=== PATIENT | male | born 1950 | race Caucasian/White ===

== ENCOUNTER 2023-06-02 18:14 | Inpatient (IN) | payer OTHER ==
[2023-06-02] MEDS ORDERED: dilTIAZem HCL 125 MG/25 ML - 25 ML VIAL ONE (19:45)
[2023-06-02 19:55] LABS: BASO % 0.4 % (0-2.0); EOS % 0.2 % (0-4.5); HEMATOCRIT 37.4 % (35.4-49); HEMOGLOBIN 12.3 GM/dL (11.7-16.9); LYMPH % 39.2 % (8-40); MCH 27.6 pg (25.7-33.7); MCHC 32.8 g/dl (32.0-35.9); MEAN CELL VOLUME 84.1 fl (80-96); MEAN PLT VOLUME 7.3 fl (7.5-11.1); MONO % 10.6 % (3.8-10.2); NEUT % 49.6 % (42.8-82.8); PLATELET COUNT 232 10^3/uL (134-434); RBC 4.45 M/mm3 (4.00-5.60); WHITE BLOOD COUNT 5.1 K/mm3 (4.0-10.0)
[2023-06-02] MEDS: dilTIAZem HCL 50 MG/10 ML - 10 ML VIAL IVPUSH ONE ×2 (19:58→22:06)
[2023-06-02 20:16] LABS: POTASSIUM 4.3 mmol/L (3.5-5.1)
[2023-06-02 20:18] LABS: ALBUMIN 2.9 g/dl (3.4-5.0); BLOOD UREA NITROGEN 43.1 mg/dL (7-18); CALCIUM 8.4 mg/dL (8.5-10.1); MAGNESIUM 2.2 mg/dL (1.8-2.4)
[2023-06-02 20:21] LABS: CREATININE 1.7 mg/dL (0.55-1.3)
[2023-06-02 20:23] LABS: TOT PROT 7.6 g/dl (6.4-8.2)
[2023-06-02 20:25] LABS: INR 1.84 (0.83-1.09); PROTHROMBIN TIME (PATIENT) 21.2 SEC (9.7-13.0)
[2023-06-02 20:27] LABS: N-TERMINAL BNP 12542.3 pg/ml (5-125)
[2023-06-02 20:28] LABS: ACTIVATED PTT 34.1 SECONDS (25.2-36.5)
[2023-06-02] MEDS ORDERED: dilTIAZem HCL 60 MG TABLET ONE (20:41)
[2023-06-02] MEDS ORDERED: FUROSEMIDE 40 MG/4 ML INJECTABLE VIAL ONE (21:09)
[2023-06-02] MEDS: dilTIAZem HCL 60 MG TABLET PO ONE (21:15)
[2023-06-02] MEDS: FUROSEMIDE 40 MG/4 ML INJECTABLE VIAL IVPUSH ONE (21:15)
[2023-06-02] MEDS ORDERED: dilTIAZem HCL 50 MG/10 ML - 10 ML VIAL ONE (21:58)
[2023-06-03] MEDS ORDERED: DOCUSATE SODIUM 100 MG CAPSULE (FP) PO PRN (00:31)
[2023-06-03] MEDS ORDERED: ACETAMINOPHEN 325 MG TABLET (FP) PO PRN (00:31)
[2023-06-03] MEDS: TICAGRELOR 60 MG TABLET PO ONE (03:18)
[2023-06-03] MEDS: PANTOPRAZOLE 40 MG TABLET PO SCH (07:41)
[2023-06-03] MEDS: ASPIRIN COATED 81 MG TABLET.EC PO SCH (09:07)
[2023-06-03] MEDS ORDERED: METOPROLOL TARTRATE 5 MG/5 ML VIAL ONE (09:30)
[2023-06-03] MEDS: METOPROLOL TARTRATE 5 MG/5 ML VIAL IVPUSH PRN (09:33)
[2023-06-03 10:33] LABS: BASO % 0.5 % (0-2.0); EOS % 0.5 % (0-4.5); HEMATOCRIT 36.2 % (35.4-49); HEMOGLOBIN 11.5 GM/dL (11.7-16.9); LYMPH % 33.2 % (8-40); MCHC 31.8 g/dl (32.0-35.9); MEAN CELL VOLUME 84.9 fl (80-96); MEAN PLT VOLUME 7.3 fl (7.5-11.1); MONO % 10.2 % (3.8-10.2); NEUT % 55.6 % (42.8-82.8); PLATELET COUNT 206 10^3/uL (134-434); RBC 4.27 M/mm3 (4.00-5.60); WHITE BLOOD COUNT 4.8 K/mm3 (4.0-10.0)
[2023-06-03] MEDS: METOPROLOL TARTRATE 25 MG TABLET (FP) PO SCH (10:42)
[2023-06-03] MEDS: FUROSEMIDE 40 MG/4 ML INJECTABLE VIAL IVPUSH SCH (10:45)
[2023-06-03 10:47] LABS: INR 1.85 (0.83-1.09); PROTHROMBIN TIME (PATIENT) 21.3 SEC (9.7-13.0)
[2023-06-03 10:50] LABS: ACTIVATED PTT 35.5 SECONDS (25.2-36.5)
[2023-06-03 10:51] LABS: POTASSIUM 3.9 mmol/L (3.5-5.1)
[2023-06-03 10:54] LABS: ALBUMIN 2.6 g/dl (3.4-5.0); BLOOD UREA NITROGEN 45.2 mg/dL (7-18); CALCIUM 8.3 mg/dL (8.5-10.1)
[2023-06-03 10:55] LABS: MAGNESIUM 2.2 mg/dL (1.8-2.4)
[2023-06-03 10:57] LABS: CREATININE 1.7 mg/dL (0.55-1.3); PHOSPHOROUS 3.8 mg/dL (2.5-4.9)
[2023-06-03 10:59] LABS: BILIRUBIN,TOTAL 0.9 mg/dL (0.2-1)
[2023-06-03] MEDS ORDERED: TICAGRELOR 60 MG TABLET PO SCH (21:00)
[2023-06-03] MEDS: TICAGRELOR 90 MG TABLET PO SCH (21:41)
[2023-06-03] MEDS: SPIRONOLACTONE 25 MG TABLET PO SCH (21:41)
[2023-06-03] MEDS: APIXABAN 5 MG TABLET PO SCH (21:41)
[2023-06-03] MEDS: metoPROLOL SUCCINATE 25 MG TAB.SR.24H (FP) PO SCH (21:42)
[2023-06-04 07:33] LABS: POTASSIUM 5.6 mmol/L (3.5-5.1)
[2023-06-04 07:49] LABS: CALCIUM 8.5 mg/dL (8.5-10.1)
[2023-06-04 07:50] LABS: ALBUMIN 2.8 g/dl (3.4-5.0)
[2023-06-04 07:53] LABS: CREATININE 2.1 mg/dL (0.55-1.3)
[2023-06-04 07:54] LABS: BILIRUBIN,TOTAL 1.4 mg/dL (0.2-1); TOT PROT 7.7 g/dl (6.4-8.2)
[2023-06-04 08:18] LABS: BASO % 0.4 % (0-2.0); EOS % 0.2 % (0-4.5); HEMATOCRIT 39.6 % (35.4-49); HEMOGLOBIN 12.8 GM/dL (11.7-16.9); LYMPH % 31.5 % (8-40); MCH 27.6 pg (25.7-33.7); MCHC 32.2 g/dl (32.0-35.9); MEAN CELL VOLUME 85.6 fl (80-96); MEAN PLT VOLUME 7.7 fl (7.5-11.1); MONO % 9.4 % (3.8-10.2); NEUT % 58.5 % (42.8-82.8); PLATELET COUNT 233 10^3/uL (134-434); RBC 4.63 M/mm3 (4.00-5.60); RDW 18.2 % (11.9-15.9); WHITE BLOOD COUNT 7.8 K/mm3 (4.0-10.0)
[2023-06-04] MEDS: metoPROLOL SUCCINATE 25 MG TAB.SR.24H (FP) PO ONE (11:54)
[2023-06-04] MEDS: CLOPIDOGREL BISULFATE 300 MG TABLET PO ONE (12:14)
[2023-06-04 18:01] VITALS: BMI 29.0
[2023-06-04] MEDS: metoPROLOL SUCCINATE 25 MG TAB.SR.24H (FP) PO SCH (22:21)
[2023-06-05 08:17] LABS: POTASSIUM 4.5 mmol/L (3.5-5.1)
[2023-06-05 08:26] LABS: ALBUMIN 2.8 g/dl (3.4-5.0); BLOOD UREA NITROGEN 56.1 mg/dL (7-18); CALCIUM 8.3 mg/dL (8.5-10.1)
[2023-06-05 08:28] LABS: CREATININE 2.5 mg/dL (0.55-1.3)
[2023-06-05 08:29] LABS: BILIRUBIN,TOTAL 1.2 mg/dL (0.2-1)
[2023-06-05 08:31] LABS: BASO % 0.3 % (0-2.0); EOS % 0.2 % (0-4.5); HEMATOCRIT 38.3 % (35.4-49); HEMOGLOBIN 12.4 GM/dL (11.7-16.9); LYMPH % 44.2 % (8-40); MCH 27.4 pg (25.7-33.7); MCHC 32.4 g/dl (32.0-35.9); MEAN CELL VOLUME 84.7 fl (80-96); MEAN PLT VOLUME 7.6 fl (7.5-11.1); MONO % 8.8 % (3.8-10.2); NEUT % 46.5 % (42.8-82.8); PLATELET COUNT 228 10^3/uL (134-434); RBC 4.52 M/mm3 (4.00-5.60); RDW 17.5 % (11.9-15.9); WHITE BLOOD COUNT 7.6 K/mm3 (4.0-10.0)
[2023-06-05] MEDS: CLOPIDOGREL BISULFATE 75 MG TABLET (FP) PO SCH (09:45)
[2023-06-05] MEDS: FUROSEMIDE 40 MG/4 ML INJECTABLE VIAL IVPUSH ONE (13:18)
[2023-06-06] MEDS: FUROSEMIDE 40 MG/4 ML INJECTABLE VIAL IVPUSH ONE (13:35)
[2023-06-07 08:40] LABS: BASO % 0.4 % (0-2.0); HEMATOCRIT 35.6 % (35.4-49); HEMOGLOBIN 11.9 GM/dL (11.7-16.9); LYMPH % 41.4 % (8-40); MCH 28.1 pg (25.7-33.7); MCHC 33.6 g/dl (32.0-35.9); MEAN CELL VOLUME 83.8 fl (80-96); MEAN PLT VOLUME 7.4 fl (7.5-11.1); NEUT % 47.2 % (42.8-82.8); PLATELET COUNT 182 10^3/uL (134-434); RBC 4.25 M/mm3 (4.00-5.60); WHITE BLOOD COUNT 5.4 K/mm3 (4.0-10.0)
[2023-06-07 08:50] LABS: POTASSIUM 3.7 mmol/L (3.5-5.1)
[2023-06-07 08:53] LABS: ALBUMIN 2.6 g/dl (3.4-5.0)
[2023-06-07 08:56] LABS: ALBUMIN 2.7 g/dl (3.4-5.0); BILIRUBIN,DIRECT 0.4 mg/dL (0.0-0.2); BLOOD UREA NITROGEN 58.2 mg/dL (7-18)
[2023-06-07 08:57] LABS: BILIRUBIN,TOTAL 0.8 mg/dL (0.2-1); TOT PROT 6.7 g/dl (6.4-8.2)
[2023-06-07 08:59] LABS: CREATININE 1.8 mg/dL (0.55-1.3)
[2023-06-07 09:00] LABS: BILIRUBIN,TOTAL 0.8 mg/dL (0.2-1)
[2023-06-07 09:01] LABS: TOT PROT 6.8 g/dl (6.4-8.2)
[2023-06-07] MEDS: FUROSEMIDE 40 MG/4 ML INJECTABLE VIAL IVPUSH SCH (11:19)
[2023-06-08 03:23] VITALS: RESP 20
[2023-06-08 07:50] LABS: BASO % 0.6 % (0-2.0); EOS % 0.6 % (0-4.5); HEMATOCRIT 37.2 % (35.4-49); HEMOGLOBIN 12.3 GM/dL (11.7-16.9); LYMPH % 43.5 % (8-40); MEAN CELL VOLUME 84.8 fl (80-96); MEAN PLT VOLUME 7.5 fl (7.5-11.1); MONO % 9.1 % (3.8-10.2); NEUT % 46.2 % (42.8-82.8); PLATELET COUNT 166 10^3/uL (134-434); RBC 4.39 M/mm3 (4.00-5.60); WHITE BLOOD COUNT 6.4 K/mm3 (4.0-10.0)
[2023-06-08 08:22] LABS: POTASSIUM 3.9 mmol/L (3.5-5.1)
[2023-06-08 08:31] LABS: ALBUMIN 2.7 g/dl (3.4-5.0); BLOOD UREA NITROGEN 55.6 mg/dL (7-18); CALCIUM 7.7 mg/dL (8.5-10.1)
[2023-06-08 08:34] LABS: CREATININE 1.6 mg/dL (0.55-1.3)
[2023-06-08 08:36] LABS: BILIRUBIN,TOTAL 0.8 mg/dL (0.2-1); TOT PROT 6.6 g/dl (6.4-8.2)
[2023-06-08 14:42] VITALS: BP 134/80; PULSE 88; TEMP 97.8
[2023-06-08] MEDS ORDERED: SACUBITRIL/VALSARTAN 24 MG-26 MG TABLET PO SCH (22:00)
[2023-06-09] MEDS ORDERED: FUROSEMIDE 40 MG TABLET (FP) PO SCH (10:00)
== END 2023-06-08 16:31 | disposition home or self-care (01) | DRG 291 ==
LOC: JER 18:14 → OBSVTOIN 21:22 → JERBED 21:22 → J4W 06-03 03:38
PROVIDERS: ADMIT Internal Medicine; ATTEND Internal Medicine
DX: I11.0 Hypertensive heart disease with heart failure (principal); I50.23 Acute on chronic systolic (congestive) heart failure; E87.1 Hypo-osmolality and hyponatremia; N17.9 Acute kidney failure, unspecified; J98.11 Atelectasis; I48.91 Unspecified atrial fibrillation; R00.0 Tachycardia, unspecified; E78.5 Hyperlipidemia, unspecified; K21.9 Gastro-esophageal reflux disease without esophagitis; I25.10 Atherosclerotic heart disease of native coronary artery without angina pectoris; R73.03 Prediabetes; K76.0 Fatty (change of) liver, not elsewhere classified; E87.70 Fluid overload, unspecified; Z95.5 Presence of coronary angioplasty implant and graft
CPT/HCPCS: 0241U-QW; 36415; 71045-TC-FY; 76775-TC; 80053; 80076; 83036; 83735; 83880; 84100; 84439; 84443; 84484; 85025; 85610; 85730; 93005; 93010; 99285-25

== ENCOUNTER 2023-06-14 15:13 | Inpatient (IN) | payer OTHER ==
[2023-06-14 16:14] LABS: VENOUS BASE EXCESS -9.6 mmol/L (-2-2); VENOUS O2 SATURATION 65.6 % (70-80); VENOUS PCO2 39.6 mmHg (38-52); VENOUS PH 7.251 (7.310-7.410)
[2023-06-14 16:15] LABS: BASO % 0.3 % (0-2.0); HEMATOCRIT 44.3 % (35.4-49); HEMOGLOBIN 13.9 GM/dL (11.7-16.9); LYMPH % 45.2 % (8-40); MCHC 31.4 g/dl (32.0-35.9); MEAN PLT VOLUME 8.6 fl (7.5-11.1); MONO % 9.8 % (3.8-10.2); NEUT % 44.7 % (42.8-82.8); PLATELET COUNT 192 10^3/uL (134-434); RBC 5.15 M/mm3 (4.00-5.60); RDW 18.9 % (11.9-15.9); WHITE BLOOD COUNT 5.4 K/mm3 (4.0-10.0)
[2023-06-14] MEDS ORDERED: CALCIUM GLUC IN NACL, ISO-OSM 1 GM/50 ML BAG IVPB ONE (16:24)
[2023-06-14] MEDS ORDERED: dilTIAZem HCL 125 MG/25 ML - 25 ML VIAL ONE (16:24)
[2023-06-14] MEDS ORDERED: FUROSEMIDE 40 MG/4 ML INJECTABLE VIAL ONE (16:26)
[2023-06-14] MEDS ORDERED: ONDANSETRON 4 MG/2 ML VIAL ONE (16:34)
[2023-06-14] MEDS: dilTIAZem HCL 50 MG/10 ML - 10 ML VIAL IVPUSH ONE (16:46)
[2023-06-14] MEDS: FUROSEMIDE 40 MG/4 ML INJECTABLE VIAL IVPUSH ONE (16:46)
[2023-06-14] MEDS: CALCIUM GLUCONATE 10% - 1,000 MG/10 ML VIAL IVPB ONE (16:46)
[2023-06-14 16:48] LABS: CHLORIDE 102 mmol/L (98-107); SODIUM 133 mmol/L (136-145)
[2023-06-14 16:52] LABS: ALBUMIN 2.9 g/dl (3.4-5.0); CO2 18 mmol/L (21-32); GLUCOSE,RANDOM 95 mg/dL (74-106)
[2023-06-14 16:55] LABS: CREATININE 2.8 mg/dL (0.55-1.3); SGOT/AST 189 U/L (15-37)
[2023-06-14 16:57] LABS: BILIRUBIN,TOTAL 1.6 mg/dL (0.2-1); TOT PROT 8.5 g/dl (6.4-8.2)
[2023-06-14 16:58] LABS: MAGNESIUM 3.2 mg/dL (1.8-2.4)
[2023-06-14 17:02] LABS: BLOOD UREA NITROGEN 80.5 mg/dL (7-18)
[2023-06-14 17:05] LABS: LACTIC ACID 6.3 mmol/L (0.4-2.0)
[2023-06-14 17:10] LABS: N-TERMINAL BNP 24380.4 pg/ml (5-125)
[2023-06-14 17:24] LABS: ALK PHOS 230 U/L (45-117); ANION GAP 13 mmol/L (4-13); CALCIUM 9.2 mg/dL (8.5-10.1); POTASSIUM 9.8 mmol/L (3.5-5.1); SGPT/ALT 103 U/L (13-61)
[2023-06-14] MEDS ORDERED: METOPROLOL TARTRATE 25 MG TABLET (FP) ONE (17:45)
[2023-06-14] MEDS: METOPROLOL TARTRATE 25 MG TABLET (FP) PO ONE (17:57)
[2023-06-14 18:28] LABS: POTASSIUM 4.7 mmol/L (3.5-5.1)
[2023-06-14 18:30] LABS: CALCIUM 9.2 mg/dL (8.5-10.1)
[2023-06-14 18:31] LABS: ALBUMIN 2.8 g/dl (3.4-5.0); BLOOD UREA NITROGEN 87.7 mg/dL (7-18)
[2023-06-14 18:34] LABS: CREATININE 2.7 mg/dL (0.55-1.3)
[2023-06-14 18:35] LABS: BILIRUBIN,TOTAL 1.7 mg/dL (0.2-1); TOT PROT 7.2 g/dl (6.4-8.2)
[2023-06-14 20:14] LABS: EPI CELLS >36 /uL (0-25.1); HYALINE CASTS 15 /uL (0-3.1); URINE APPEARANCE CLOUDY; URINE BACTERIA 28 /uL (0-1359); URINE BILIRUBIN NEGATIVE (NEGATIVE); URINE COLOR YELLOW; URINE GLUCOSE (UA) NEGATIVE (NEGATIVE); URINE KETONE NEGATIVE (NEGATIVE); URINE LEUK ESTERASE 1+ (NEGATIVE); URINE NITRITE NEGATIVE (NEGATIVE); URINE PROTEIN 1+ (NEGATIVE); URINE RBC 61 /uL (0-23.9); URINE WBC 45 /uL (0-25.8)
[2023-06-14 20:50] LABS: LACTIC ACID 7.9 mmol/L (0.4-2.0)
[2023-06-14] MEDS ORDERED: DOCUSATE SODIUM 100 MG CAPSULE (FP) PO PRN (21:49)
[2023-06-14] MEDS ORDERED: APIXABAN 5 MG TABLET ONE (22:19)
[2023-06-14] MEDS: APIXABAN 5 MG TABLET PO SCH (22:22)
[2023-06-14] MEDS ORDERED: ACETAMINOPHEN INJECTION 100 ML IVPB ONE (23:59)
[2023-06-15] MEDS: ACETAMINOPHEN 1000 MG/100 ML BAG IVPB ONE (00:05)
[2023-06-15] MEDS ORDERED: DEXAMETHASONE SOD PHOSPHATE 10 MG/1 ML VIAL ONE (02:17)
[2023-06-15] MEDS ORDERED: CEFTRIAXONE 1 GM/50 ML BAG ONE (02:18)
[2023-06-15] MEDS: DEXAMETHASONE SOD PHOSPHATE 4 MG/1 ML VIAL IVPUSH ONE (02:28)
[2023-06-15] MEDS: CEFTRIAXONE 1 GM in DEXTROSE 5%-WATER - 50 ML IVPB ONE (02:28)
[2023-06-15] MEDS ORDERED: RAPID SEQUENCE INTUBATION KIT NR ONE ×2 (03:55→08:42)
[2023-06-15] MEDS ORDERED: DEXTROSE 50%-WATER 25 GM/50 ML DISP.SYRIN ONE ×2 (03:59→04:26)
[2023-06-15] MEDS: SODIUM CHLORIDE 250 ML IV STA (04:21)
[2023-06-15 04:50] LABS: ARTERIAL BLD GAS O2 SATURATION 99.5 % (95-98); ARTERIAL BLOOD GAS BASE EXCESS -20.7 mmol/L (-2-2); ARTERIAL BLOOD GAS PO2 295.1 mmHg (80-100)
[2023-06-15 05:05] LABS: ARTERIAL BLOOD GAS pH 7.089 (7.350-7.450)
[2023-06-15] MEDS: DEXTROSE 10%-WATER - 1,000 ML IV SCH (05:08)
[2023-06-15] MEDS: DEXTROSE 50%-WATER 25 GM/50 ML DISP.SYRIN IVPUSH ONE ×2 (05:08)
[2023-06-15 05:41] LABS: BASO % 0.1 % (0-2.0); HEMATOCRIT 31.6 % (35.4-49); HEMOGLOBIN 9.7 GM/dL (11.7-16.9); LYMPH % 7.7 % (8-40); MCH 27.4 pg (25.7-33.7); MCHC 30.8 g/dl (32.0-35.9); MEAN CELL VOLUME 88.7 fl (80-96); MEAN PLT VOLUME 8.9 fl (7.5-11.1); MONO % 5.5 % (3.8-10.2); NEUT % 86.7 % (42.8-82.8); PLATELET COUNT 132 10^3/uL (134-434); RBC 3.56 M/mm3 (4.00-5.60); RDW 18.9 % (11.9-15.9); WHITE BLOOD COUNT 9.4 K/mm3 (4.0-10.0)
[2023-06-15 05:59] LABS: CHLORIDE 106 mmol/L (98-107); SODIUM 137 mmol/L (136-145)
[2023-06-15 06:04] LABS: BLOOD UREA NITROGEN 86.9 mg/dL (7-18); CO2 8 mmol/L (21-32); GLUCOSE,RANDOM 236 mg/dL (74-106)
[2023-06-15 06:07] LABS: CREATININE 3.2 mg/dL (0.55-1.3)
[2023-06-15 06:09] LABS: BILIRUBIN,TOTAL 1.9 mg/dL (0.2-1); TOT PROT 5.2 g/dl (6.4-8.2)
[2023-06-15 06:11] LABS: LACTIC ACID 13.6 mmol/L (0.4-2.0)
[2023-06-15] MEDS ORDERED: NOREPINEPHRINE BITARTRATE 4 MG/4 ML ML IV ONE (06:26)
[2023-06-15] MEDS: NOREPINEPHRINE BITARTRATE 4,000 MCG in DEXTROSE 5%-WATER - 496 ML IV SCH (06:30)
[2023-06-15 06:32] LABS: ALBUMIN 2.1 g/dl (3.4-5.0); ALK PHOS 155 U/L (45-117); ANION GAP 23 mmol/L (4-13); POTASSIUM 6.1 mmol/L (3.5-5.1); SGOT/AST 1816 U/L (15-37); SGPT/ALT 1062 U/L (13-61)
[2023-06-15] MEDS ORDERED: fentaNYL CITRATE 250 MCG/5 ML VIAL ONE (06:36)
[2023-06-15] MEDS ORDERED: CALCIUM GLUCONATE 10% - 1,000 MG/10 ML VIAL ONE (06:36)
[2023-06-15] MEDS: CALCIUM GLUC IN NACL, ISO-OSM 1 GM/50 ML BAG IVPB ONE ×3 (07:02→23:53)
[2023-06-15 07:13] LABS: ARTERIAL BLD GAS O2 SATURATION 99.6 % (95-98); ARTERIAL BLOOD GAS BASE EXCESS -21.1 mmol/L (-2-2); ARTERIAL BLOOD GAS PO2 313.9 mmHg (80-100)
[2023-06-15 07:15] LABS: VENT MODE ST; VENT RATE 12
[2023-06-15] MEDS: SODIUM BICARBONATE 8.4% 50 MEQ/50 ML DISP.SYRIN IVPUSH ONE ×2 (07:53→07:54)
[2023-06-15] MEDS: DEXTROSE 50%-WATER - 25 GM/50 ML VIAL IVPUSH PRN (07:57)
[2023-06-15] MEDS ORDERED: VASopressin 20 UNITS/ML VIAL IV ONE (07:59)
[2023-06-15] MEDS ORDERED: ALBUTEROL SO4 0.083% IH SOL 2.5 MG/3 ML VIAL.NEB. NEB ONE (08:09)
[2023-06-15] MEDS: VASopressin 40 UNITS/100 ML BAG IV SCH (08:17)
[2023-06-15] MEDS: SODIUM CHLORIDE 1,000 ML IV STA (08:18)
[2023-06-15] MEDS: HYDROCORTISONE SOD SUCCINATE 100 MG/2 ML VIAL IVPB SCH (08:22)
[2023-06-15] MEDS: NOREPINEPHRINE BITARTRATE/D5W 8 MG/250 ML BAG IVPB SCH ×2 (08:26→11:54)
[2023-06-15] MEDS: SODIUM BICARBONATE 8.4% - 150 MEQ in DEXTROSE 5%-WATER - 950 ML IV SCH (08:26)
[2023-06-15] MEDS: ALBUTEROL SO4 0.5 % INH SOLN 2.5 MG/0.5 ML VIAL.NEB. NEB ONE (08:30)
[2023-06-15] MEDS ORDERED: MIDAZOLAM HCL 2 MG/2 ML SINGLE DOSE VIAL ONE (08:42)
[2023-06-15] MEDS: VANCOMYCIN/WATER FOR INJ (PEG) 1,000 MG/250 ML BAG IVPB ONE (08:44)
[2023-06-15] MEDS: MIDAZOLAM HCL 2 MG/2 ML SINGLE DOSE VIAL IVPUSH ONE (08:48)
[2023-06-15] MEDS ORDERED: MIDAZOLAM IN 0.9 % SOD.CHLORID 1 MG/1 ML PLAST..BAG ONE (08:51)
[2023-06-15] MEDS ORDERED: SODIUM BICARBONATE 8.4% - 150 MEQ in DEXTROSE 5%-WATER - 1,000 ML IV SCH (09:00)
[2023-06-15] MEDS: MIDAZOLAM IN 0.9 % SOD.CHLORID 100 MG/100 ML PLAST..BAG IVPB SCH (09:19)
[2023-06-15] MEDS: PROPOFOL 200 MG/20 ML VIAL IVPUSH ONE (09:53)
[2023-06-15] MEDS: FENTANYL NS IVPB 500 MCG/100 ML BAG IVPB SCH ×2 (09:54→18:02)
[2023-06-15 09:59] LABS: CHLORIDE 104 mmol/L (98-107); POTASSIUM 5.6 mmol/L (3.5-5.1); SODIUM 139 mmol/L (136-145)
[2023-06-15] MEDS ORDERED: FUROSEMIDE 40 MG/4 ML INJECTABLE VIAL IVPUSH SCH (10:00)
[2023-06-15] MEDS ORDERED: PIPERACILLIN/TAZOB 3.375 GM 3.375 GM in DEXTROSE 5%-WATER - 50 ML IVPB SCH (10:00)
[2023-06-15 10:01] LABS: ALBUMIN 1.8 g/dl (3.4-5.0); ANION GAP 23 mmol/L (4-13); CALCIUM 7.4 mg/dL (8.5-10.1); CO2 12 mmol/L (21-32)
[2023-06-15 10:02] LABS: BLOOD UREA NITROGEN 86.9 mg/dL (7-18); GLUCOSE,RANDOM 260 mg/dL (74-106); MAGNESIUM 2.8 mg/dL (1.8-2.4)
[2023-06-15 10:05] LABS: CREATININE 3.2 mg/dL (0.55-1.3)
[2023-06-15 10:06] LABS: BILIRUBIN,TOTAL 1.8 mg/dL (0.2-1); TOT PROT 4.6 g/dl (6.4-8.2)
[2023-06-15 10:07] LABS: ALK PHOS 138 U/L (45-117)
[2023-06-15 10:11] LABS: LACTIC ACID > 15.0 mmol/L (0.4-2.0)
[2023-06-15 10:19] LABS: INR > 15.00 (0.83-1.09)
[2023-06-15] MEDS: ASPIRIN COATED 81 MG TABLET.EC PO SCH (10:22)
[2023-06-15] MEDS: CLOPIDOGREL BISULFATE 75 MG TABLET (FP) PO SCH (10:22)
[2023-06-15 10:29] LABS: PHOSPHOROUS 9.9 mg/dL (2.5-4.9); SGOT/AST 3696 U/L (15-37); SGPT/ALT 1827 U/L (13-61)
[2023-06-15] MEDS: PANTOPRAZOLE SODIUM 40 MG VIAL IVPUSH SCH (10:29)
[2023-06-15] MEDS: PHYTONADIONE 10 MG/1 ML AMP IVPB ONE ×2 (10:29→16:43)
[2023-06-15] MEDS: PIPERACILLIN/TAZOB 3.375 GM 3.375 GM in DEXTROSE 5%-WATER - 50 ML IVPB SCH (10:29)
[2023-06-15 10:41] LABS: BASO % 0.2 % (0-2.0); EOS % 0.2 % (0-4.5); HEMATOCRIT 29.6 % (35.4-49); HEMOGLOBIN 8.8 GM/dL (11.7-16.9); LYMPH % 17.1 % (8-40); MCH 27.1 pg (25.7-33.7); MCHC 29.6 g/dl (32.0-35.9); MEAN CELL VOLUME 91.5 fl (80-96); MEAN PLT VOLUME 8.9 fl (7.5-11.1); MONO % 4.7 % (3.8-10.2); NEUT % 77.8 % (42.8-82.8); PLATELET COUNT 118 10^3/uL (134-434); RBC 3.24 M/mm3 (4.00-5.60); RDW 19.9 % (11.9-15.9)
[2023-06-15] MEDS ORDERED: PROPOFOL 1,000,000 MCG/100 ML VIAL ONE (10:45)
[2023-06-15] MEDS: PROPOFOL 1,000,000 MCG/100 ML VIAL IVPB SCH (11:04)
[2023-06-15 11:54] VITALS: BMI 29.2
[2023-06-15] MEDS: INSULIN REGULAR HUMAN 100 UNITS/ML *VIAL IVPUSH ONE (11:54)
[2023-06-15] MEDS: VANCOMYCIN 1 GRAM (PRE-DOCKED) 1,000 MG/250 ML BAG IVPB ONE (11:54)
[2023-06-15] MEDS: FLUDROCORTISONE ACETATE 0.1 MG TABLET (FP) PO SCH (11:54)
[2023-06-15] MEDS: FENTANYL IVPB 500 MCG/100 ML BAG IVPB SCH (11:54)
[2023-06-15] MEDS ORDERED: VANCOMYCIN 1,000 MG in DEXTROSE 5%-WATER - 250 ML IVPB ONE (12:00)
[2023-06-15] MEDS ORDERED: SODIUM CHLORIDE 250 ML IV PRN (14:05)
[2023-06-15 14:55] LABS: ACTIVATED PTT 43.6 SECONDS (25.2-36.5)
[2023-06-15 15:05] LABS: LACTIC ACID 13.8 mmol/L (0.4-2.0)
[2023-06-15 15:08] LABS: PROTHROMBIN TIME (PATIENT) 149.7 SEC (9.7-13.0)
[2023-06-15 15:10] LABS: INR 13.24 (0.83-1.09)
[2023-06-15 15:28] LABS: ALK PHOS 150 U/L (45-117)
[2023-06-15 15:30] LABS: ANION GAP 21 mmol/L (4-13); BILIRUBIN,TOTAL 2.2 mg/dL (0.2-1); BLOOD UREA NITROGEN 92.6 mg/dL (7-18); CALCIUM 7.3 mg/dL (8.5-10.1); CHLORIDE 103 mmol/L (98-107); CO2 13 mmol/L (21-32); CREATININE 3.5 mg/dL (0.55-1.3); GLUCOSE,RANDOM 215 mg/dL (74-106); MAGNESIUM 2.7 mg/dL (1.8-2.4); POTASSIUM 5.8 mmol/L (3.5-5.1); SGOT/AST 6505 U/L (15-37); SGPT/ALT 2620 U/L (13-61); SODIUM 138 mmol/L (136-145)
[2023-06-15 15:32] LABS: PHOSPHOROUS 9.4 mg/dL (2.5-4.9)
[2023-06-15 16:54] LABS: BASO % 0.1 % (0-2.0); EOS % 0.2 % (0-4.5); HEMATOCRIT 26.6 % (35.4-49); HEMOGLOBIN 8.1 GM/dL (11.7-16.9); LYMPH % 22.9 % (8-40); MCH 26.9 pg (25.7-33.7); MCHC 30.6 g/dl (32.0-35.9); MEAN PLT VOLUME 8.9 fl (7.5-11.1); MONO % 4.8 % (3.8-10.2); PLATELET COUNT 101 10^3/uL (134-434); RBC 3.03 M/mm3 (4.00-5.60); RDW 19.1 % (11.9-15.9)
[2023-06-15 17:03] LABS: WHITE BLOOD COUNT 1.5 K/mm3 (4.0-10.0)
[2023-06-15] MEDS: PIPERACILLIN/TAZOB 2.25 GM 2.25 GM in DEXTROSE 5%-WATER - 50 ML IVPB SCH (17:21)
[2023-06-15 18:18] LABS: ANISOCYTOSIS 1+; CORRECTED WBC 1.35 K/mm3; MACROCYTOSIS 1+; OVALOCYTE 1+; TEAR DROP CELLS 1+
[2023-06-15 18:37] LABS: PLATELET ESTIMATE SLT DECREASE
[2023-06-15 19:05] LABS: ARTERIAL BLOOD GAS BASE EXCESS -7.6 mmol/L (-2-2); ARTERIAL BLOOD GAS PO2 115.2 mmHg (80-100); ARTERIAL BLOOD GAS pH 7.343 (7.350-7.450)
[2023-06-15 19:08] LABS: VENT MODE A/C; VENT RATE 16
[2023-06-15 20:32] LABS: ACTIVATED PTT 43.7 SECONDS (25.2-36.5)
[2023-06-15 20:38] LABS: CHLORIDE 100 mmol/L (98-107); POTASSIUM 4.5 mmol/L (3.5-5.1); SODIUM 138 mmol/L (136-145)
[2023-06-15 20:41] LABS: ANION GAP 16 mmol/L (4-13); CO2 22 mmol/L (21-32); GLUCOSE,RANDOM 244 mg/dL (74-106); MAGNESIUM 2.2 mg/dL (1.8-2.4)
[2023-06-15 20:44] LABS: CREATININE 2.8 mg/dL (0.55-1.3); INR 12.11 (0.83-1.09); PHOSPHOROUS 6.5 mg/dL (2.5-4.9)
[2023-06-15 20:46] LABS: BILIRUBIN,TOTAL 2.3 mg/dL (0.2-1); TOT PROT 4.8 g/dl (6.4-8.2)
[2023-06-15 20:47] LABS: ALK PHOS 157 U/L (45-117)
[2023-06-15 21:19] LABS: BLOOD UREA NITROGEN 65.7 mg/dL (7-18); CALCIUM 6.5 mg/dL (8.5-10.1); SGOT/AST 7448 U/L (15-37); SGPT/ALT 2884 U/L (13-61)
[2023-06-15] MEDS ORDERED: HUM PROTHROMBIN CPLX(PCC)4FACT 1,000 UNIT/40 ML VIAL IV ONE (21:31)
[2023-06-15] MEDS: PROTHROMBIN COMPLEX CONCENTRATE IVPB ONE (23:54)
[2023-06-16] MEDS: DEXTROSE 10%-WATER - 1,000 ML IV SCH (06:36)
[2023-06-16 06:47] LABS: ARTERIAL BLD GAS O2 SATURATION 53.1 % (95-98); ARTERIAL BLOOD GAS BASE EXCESS -14.1 mmol/L (-2-2); ARTERIAL BLOOD GAS PO2 40.1 mmHg (80-100); ARTERIAL BLOOD GAS pH 7.043 (7.350-7.450)
[2023-06-16 06:48] LABS: HEMATOCRIT 22.5 % (35.4-49); MCH 27.1 pg (25.7-33.7); MCHC 29.9 g/dl (32.0-35.9); MEAN CELL VOLUME 90.4 fl (80-96); MEAN PLT VOLUME 9.6 fl (7.5-11.1); PLATELET COUNT 64 10^3/uL (134-434); PROTHROMBIN TIME (PATIENT) 51.8 SEC (9.7-13.0); RBC 2.49 M/mm3 (4.00-5.60); RDW 19.6 % (11.9-15.9)
[2023-06-16 07:17] LABS: WHITE BLOOD COUNT 4.4 K/mm3 (4.0-10.0)
[2023-06-16 07:27] LABS: HEMOGLOBIN 6.7 GM/dL (11.7-16.9)
[2023-06-16 07:29] LABS: LACTIC ACID 15.1 mmol/L (0.4-2.0)
[2023-06-16 07:37] LABS: ALBUMIN 1.6 g/dl (3.4-5.0); BLOOD UREA NITROGEN 70.8 mg/dL (7-18); CO2 15 mmol/L (21-32); GLUCOSE,RANDOM 193 mg/dL (74-106); MAGNESIUM 2.4 mg/dL (1.8-2.4)
[2023-06-16 07:58] LABS: INR 4.53 (0.83-1.09)
[2023-06-16] MEDS ORDERED: CALCIUM GLUCONATE 10% - 1,000 MG/10 ML VIAL ONE (08:02)
[2023-06-16 08:23] LABS: SGOT/AST 6332 U/L (15-37)
[2023-06-16 08:45] VITALS: RESP 26
[2023-06-16 09:01] LABS: ALK PHOS 157 U/L (45-117); ANION GAP 23 mmol/L (4-13); CALCIUM 6.2 mg/dL (8.5-10.1); CHLORIDE 100 mmol/L (98-107); POTASSIUM 6.4 mmol/L (3.5-5.1); SGPT/ALT 2448 U/L (13-61); SODIUM 138 mmol/L (136-145)
[2023-06-16] MEDS ORDERED: SODIUM CHLORIDE 250 ML IV PRN (09:06)
[2023-06-16 09:48] VITALS: BP 139/38; PULSE 143; TEMP 96.9
[2023-06-16] MEDS ORDERED: CEFTRIAXONE 1 GM in DEXTROSE 5%-WATER - 50 ML IVPB SCH (10:00)
[2023-06-16] MEDS ORDERED: DEXAMETHASONE SOD PHOSPHATE 10 MG/1 ML VIAL IVPUSH SCH (10:00)
[2023-06-16] MEDS ORDERED: PANTOPRAZOLE SODIUM 40 MG VIAL IVPUSH SCH (10:00)
[2023-06-16 10:04] LABS: ANISOCYTOSIS 1+; CORRECTED WBC 3.79 K/mm3; MACROCYTOSIS 0
== END 2023-06-16 08:22 | disposition expired | DRG 871 ==
LOC: JER 15:13 → JERBED 17:47 → JICU 06-15 05:48
PROVIDERS: ADMIT Internal Medicine; ATTEND Internal Medicine
PROC: 0BH18EZ Insertion of Endotracheal Airway into Trachea, Via Natural or Artificial Opening Endoscopic (ICD-10-PCS; principal; 2023-06-15)
PROC: 5A1945Z Respiratory Ventilation, 24-96 Consecutive Hours (ICD-10-PCS; 2023-06-15)
PROC: 06HN33Z Insertion of Infusion Device into Left Femoral Vein, Percutaneous Approach (ICD-10-PCS; 2023-06-15)
PROC: B54CZZA Ultrasonography of Left Lower Extremity Veins, Guidance (ICD-10-PCS; 2023-06-15)
PROC: 05HM33Z Insertion of Infusion Device into Right Internal Jugular Vein, Percutaneous Approach (ICD-10-PCS; 2023-06-15)
PROC: B543ZZA Ultrasonography of Right Jugular Veins, Guidance (ICD-10-PCS; 2023-06-15)
PROC: 5A12012 Performance of Cardiac Output, Single, Manual (ICD-10-PCS; 2023-06-15)
PROC: 5A1D70Z Performance of Urinary Filtration, Intermittent, Less than 6 Hours Per Day (ICD-10-PCS; 2023-06-15)
DX: A41.89 Other specified sepsis (principal); I50.33 Acute on chronic diastolic (congestive) heart failure; R65.21 Severe sepsis with septic shock; J96.01 Acute respiratory failure with hypoxia; K72.00 Acute and subacute hepatic failure without coma; E87.20 Acidosis, unspecified; K55.9 Vascular disorder of intestine, unspecified; N17.9 Acute kidney failure, unspecified; D68.9 Coagulation defect, unspecified; E87.1 Hypo-osmolality and hyponatremia; E78.00 Pure hypercholesterolemia, unspecified; R57.0 Cardiogenic shock; I11.0 Hypertensive heart disease with heart failure; R79.89 Other specified abnormal findings of blood chemistry; I48.91 Unspecified atrial fibrillation; K21.9 Gastro-esophageal reflux disease without esophagitis; I46.9 Cardiac arrest, cause unspecified; I95.9 Hypotension, unspecified; R68.0 Hypothermia, not associated with low environmental temperature; R73.03 Prediabetes; K76.0 Fatty (change of) liver, not elsewhere classified; I25.10 Atherosclerotic heart disease of native coronary artery without angina pectoris; Z95.5 Presence of coronary angioplasty implant and graft
CPT/HCPCS: 0241U-QW; 31500; 36415; 36430; 36600; 71045-TC-FY; 74174-TC; 74176-TC; 80053; 81003; 82272; 82550; 82553; 82803; 82962; 83605; 83690; 83735; 83880; 84100; 84484; 85025; 85379; 85384; 85610; 85730; 86704; 86803; 86850; 86900; 86901; 86922; 87040; 87086; 87186; 87340; 87517; 93005; 93010; 93306-TC; 94002; 94640; 94660; 99291; J0131; J1250; J3490; J7168; P9017